=== PATIENT | female | born 1955 | race Caucasian/White ===

== ENCOUNTER 2017-09-24 05:57 | Day surgery (SDC) | payer BC ==
[~2017-09-24] VITALS: Ht 157.5 cm; Wt 61.2 kg
[~2017-09-24 05:57] MED LIST: INDERAL10 M1 PO; LEXAPRO20 MG PO; MELOXICAM15 MG PO; PERCOCET 5/321 COMBO PO; QUINAPRIL40 MG PO; WELLBUTRIN200 M1 PO
[2017-09-24 07:34] VITALS: BP 141/84
== END 2017-09-24 07:55 | disposition home or self-care (01) | DRG 558 ==
LOC: ORM 05:57
PROVIDERS: ATTEND Anesthesiology Pain Medicine
PROC: 3E0U33Z Introduction of Anti-inflammatory into Joints, Percutaneous Approach (ICD-10-PCS; principal; 2017-09-24)
PROC: 3E0U3BZ Introduction of Anesthetic Agent into Joints, Percutaneous Approach (ICD-10-PCS; 2017-09-24)
DX: M70.71 Other bursitis of hip, right hip (principal); M12.9 Arthropathy, unspecified

== ENCOUNTER 2017-10-08 08:04 | Day surgery (SDC) | payer BC ==
[~2017-10-08] VITALS: Ht 157.5 cm; Wt 60.8 kg
[2017-10-08 11:24] VITALS: BP 144/74
== END 2017-10-08 10:00 | disposition home or self-care (01) | DRG 558 ==
LOC: ORM 08:04
PROVIDERS: ATTEND Anesthesiology Pain Medicine
PROC: 3E0U33Z Introduction of Anti-inflammatory into Joints, Percutaneous Approach (ICD-10-PCS; principal; 2017-10-08)
PROC: 3E0U3BZ Introduction of Anesthetic Agent into Joints, Percutaneous Approach (ICD-10-PCS; 2017-10-08)
DX: M70.71 Other bursitis of hip, right hip (principal); M12.9 Arthropathy, unspecified

== ENCOUNTER 2017-12-17 07:20 | Day surgery (SDC) | payer BC ==
[~2017-12-17] VITALS: Ht 157.5 cm; Wt 61.2 kg
[~2017-12-17 07:20] MED LIST changes: +CRESTOR10 MG PO; +EC ASPIRIN325 MG PO
[2017-12-17] MEDS ORDERED: XANAX0.5 MG PO (07:38)
[2017-12-17] MEDS ORDERED: MULTIVITAMI9 PO (07:39)
[2017-12-17] MEDS ORDERED: VITAMIN D PO ×2 (07:39→07:40)
[2017-12-17] MEDS ORDERED: VOLTAREN1%GEL TOP ×4 (09:42→09:44)
[2017-12-17 10:19] VITALS: BP 125/58
== END 2017-12-17 09:50 | disposition home or self-care (01) | DRG 552 ==
LOC: ORM 07:20
PROVIDERS: ATTEND Anesthesiology Pain Medicine
PROC: 3E0U33Z Introduction of Anti-inflammatory into Joints, Percutaneous Approach (ICD-10-PCS; principal; 2017-12-17)
PROC: 3E0U3BZ Introduction of Anesthetic Agent into Joints, Percutaneous Approach (ICD-10-PCS; 2017-12-17)
PROC: 3E0T3BZ Introduction of Anesthetic Agent into Peripheral Nerves and Plexi, Percutaneous Approach (ICD-10-PCS; 2017-12-17)
PROC: 3E0T33Z Introduction of Anti-inflammatory into Peripheral Nerves and Plexi, Percutaneous Approach (ICD-10-PCS; 2017-12-17)
PROC: BR161ZZ Fluoroscopy of Lumbar Facet Joint(s) using Low Osmolar Contrast (ICD-10-PCS; 2017-12-17)
DX: M54.5 Low back pain (principal); M47.816 Spondylosis without myelopathy or radiculopathy, lumbar region; M46.96 Unspecified inflammatory spondylopathy, lumbar region; M71.551 Other bursitis, not elsewhere classified, right hip

== ENCOUNTER 2017-12-31 06:54 | Day surgery (SDC) | payer BC ==
[~2017-12-31] VITALS: Ht 157.5 cm; Wt 61.2 kg
[~2017-12-31 06:54] MED LIST changes: +MULTIVITAMI9 PO; +VITAMIN D PO; +VOLTAREN1%GEL TOP; +XANAX0.5 MG PO
[2017-12-31 08:23] VITALS: BP 125/82
== END 2017-12-31 09:08 | disposition home or self-care (01) | DRG 552 ==
LOC: ORM 06:54
PROVIDERS: ATTEND Anesthesiology Pain Medicine
PROC: 3E0T3BZ Introduction of Anesthetic Agent into Peripheral Nerves and Plexi, Percutaneous Approach (ICD-10-PCS; principal; 2017-12-31)
PROC: 3E0T33Z Introduction of Anti-inflammatory into Peripheral Nerves and Plexi, Percutaneous Approach (ICD-10-PCS; 2017-12-31)
PROC: BR161ZZ Fluoroscopy of Lumbar Facet Joint(s) using Low Osmolar Contrast (ICD-10-PCS; 2017-12-31)
PROC: 3E0T3BZ Introduction of Anesthetic Agent into Peripheral Nerves and Plexi, Percutaneous Approach (ICD-10-PCS; 2017-12-31)
PROC: 3E0T33Z Introduction of Anti-inflammatory into Peripheral Nerves and Plexi, Percutaneous Approach (ICD-10-PCS; 2017-12-31)
DX: M54.5 Low back pain (principal); M46.96 Unspecified inflammatory spondylopathy, lumbar region; M71.551 Other bursitis, not elsewhere classified, right hip